=== PATIENT | male | born 2000 | race Caucasian/White ===

== ENCOUNTER → 2018-05-18 | Outpatient (CLI) | payer OTHER ==
--- NOTE | 2018-05-18 15:57 | KCIC ---
3 views of the nasal bones without comparison for acute nasal pain and swelling deformity. FINDINGS: There is no radiographically discernible displaced nasal fracture. No radiopaque foreign bodies are seen. No unexpected air within the soft tissues. IMPRESSION: 1. No radiographically discernible acute abnormality. Electronically signed by: Joseph Godwin MD (05/18/2018 3:53 PM) [id number]
== END | disposition home or self-care (01) ==
LOC: KCIC 15:30
PROVIDERS: ATTEND Family Medicine
DX: J34.89 Other specified disorders of nose and nasal sinuses (principal)
CPT/HCPCS: 70150